=== PATIENT | male | born 1990 | race Caucasian/White ===

== ENCOUNTER 2023-07-25 14:47 | Emergency (ER) | payer OTHER ==
--- NOTE | 2023-07-25 15:14 | ED ---
General Adult HPI - General Source: patient, RN notes reviewed Mode of arrival: ambulatory Limitations: no limitations <Jose A Roman - Last Filed: 07/25/23 15:13> - General Source: RN notes reviewed, old records reviewed Mode of arrival: ambulatory Limitations: no limitations - History of Present Illness -: hour(s) Location: chest Radiation: non-radiation Improves with: none Worsens with: none Associated Symptoms: denies other symptoms <Robin Jones - Last Filed: 07/29/23 18:09> - General Stated complaint: Coughing up black flem Time Seen by Provider: 07/25/23 15:13 - History of Present Illness Initial comments: 33-year-old male presents emergency Department from [facility] for evaluation of cough. he states she is a cough is productive in which she had 2 episodes that the sputum seemed to be black. He doesn't that he is a smoker is currently there for polysubstance abuse. (Jose A Roman) This is a 33-year-old male to the emergency department for evaluation. Patient to episodes of coughing up sputum that did appear to be dark maybe blood-tinged. Patient has no chest pain no current shortness of breath. No prior history of vomiting or coughing up blood. No recent fevers night sweats other complaints (Robin Jones) - Related Data Allergies Allergy/AdvReac Type Severity Reaction Status Date / Time No Known Allergies Allergy Verified 07/25/23 15:30 Review of Systems ROS Other: All systems not noted in ROS Statement are negative. <Jose A Roman - Last Filed: 07/25/23 15:13> ROS Other: All systems not noted in ROS Statement are negative. <Robin Jones - Last Filed: 07/29/23 18:09> ROS Statement: Those systems with pertinent positive or pertinent negative responses have been documented in the HPI. General Exam <Jose A Roman - Last Filed: 07/25/23 15:13> General appearance: alert, in no apparent distress Head exam: Present: atraumatic, normocephalic, normal inspection Eye exam: Present: normal appearance, PERRL, EOMI. Absent: scleral icterus, conjunctival injection, periorbital swelling ENT exam: Present: normal exam, mucous membranes moist Neck exam: Present: normal inspection. Absent: tenderness, meningismus, lymphadenopathy Respiratory exam: Present: normal lung sounds bilaterally. Absent: respiratory distress, wheezes, rales, rhonchi, stridor Cardiovascular Exam: Present: regular rate, normal rhythm, normal heart sounds. Absent: systolic murmur, diastolic murmur, rubs, gallop, clicks GI/Abdominal exam: Present: soft, normal bowel sounds. Absent: distended, tenderness, guarding, rebound, rigid Extremities exam: Present: normal inspection, full ROM, normal capillary refill. Absent: tenderness, pedal edema, joint swelling, calf tenderness Back exam: Present: normal inspection Neurological exam: Present: alert, oriented X3, CN II-XII intact Psychiatric exam: Present: normal affect, normal mood Skin exam: Present: warm, dry, intact, normal color. Absent: rash <Robin Jones - Last Filed: 07/29/23 18:09> - General Exam Comments Initial Comments: Visual Physical Exam Vital signs reviewed General: Well-appearing, nontoxic, no acute distress. Head: Normocephalic, atraumatic Eyes: PERRLA, EOMI ENT: Airway patent Chest: Nonlabored breathing Skin: No visual rash, normal skin tone Neuro: Alert and oriented 3 Musculoskeletal: No gross abnormalities (Jose A Roman) Course <Robin Jones - Last Filed: 07/29/23 18:09> Vital Signs 07/25/23 07/25/23 07/25/23 15:30 17:00 17:18 Temperature 98 F 97.9 F Pulse Rate 101 H 88 Respiratory 16 18 16 Rate Blood Pressure 142/88 134/87 O2 Sat by Pulse 98 100 Oximetry - Reevaluation(s) Reevaluation #1: 07/25/23 Medical record is reviewed (Robin Jones) Reevaluation #2: 07/25/23 Patient symptoms are unchanged (Robin Jones) Reevaluation #3: 07/25/23 Patient for results and questions answered (Robin Jones) Reevaluation #4: Was pt. sent in by a medical professional or institution (, PA, [employer], urgent care, hospital, or [place] [facility] facility...) When possible be specific @ -no Did you speak to anyone other than the patient for history (EMS, parent, family, police, friend...)? What history was obtained from this source @ -no Did you review nursing and triage notes (agree or disagree)? Why? @ -agree Are old charts reviewed (outside hosp., previous admission, EMS record, old EKG, old radiological studies, urgent care reports/EKG's, [place] [facility] records)? Report findings @ -yes Differential Diagnosis (chest pain, altered mental status, abdominal pain women, abdominal pain men, vaginal bleeding, weakness, fever, dyspnea, syncope, headache, dizziness, GI bleed, back pain, seizure, CVA, palpatations, mental health, musculoskeletal)? @ -prior EKG interpreted by me (3pts min.). @ -no X-rays interpreted by me (1pt min.). @ -yes CT interpreted by me (1pt min.). @ -no U/S interpreted by me (1pt. min.). @ -no What testing was considered but not performed or refused? (CT, X-rays, U/S, labs)? Why? @ -none What meds were considered but not given or refused? Why? @ -none Did you discuss the management of the patient with other professionals (professionals i.e. DrLetty, PA, [employer], lab, RT, psych nurse, psych social worker, booking clerk, teacher, code enforcement officer, lining caser)? Give summary @ -no Was smoking cessation discussed for >3mins.? @ -no Was critical care preformed (if so, how long)? @ -no Were there social determinants of health that impacted care today? How? (Homelessness, low income, unemployed, alcoholism, drug addiction, transportation, low edu. Level, literacy, decrease access to med. care, half-way, rehab)? @ -none Was there de-escalation of care discussed even if they declined (Discuss DNR or withdrawal of care, Hospice)? DNR status @ -no What co-morbidities impacted this encounter? (DM, HTN, Smoking, COPD, CAD, Cancer, CVA, ARF, Chemo, Hep., AIDS, mental health diagnosis, sleep apnea, morbid obesity)? @ -none Was patient admitted / discharged? Hospital course, mention meds given and route, prescriptions, significant lab abnormalities, going to OR and other pertinent info. @ - 33 female to the emergency department possibility of coughing up blood but no findings on x-ray here in the ER no recurrent hemoptysis and patient can be discharged home Undiagnosed new problem with uncertain prognosis? @ -no Drug Therapy requiring intensive monitoring for toxicity (Heparin, Nitro, Insulin, Cardizem)? @ -no Were any procedures done? @ -no Diagnosis/symptom? @ -Hemoptysis Acute, or Chronic, or Acute on Chronic? @ -Acute Uncomplicated (without systemic symptoms) or Complicated (systemic symptoms)? @ -Complicated Side effects of treatment? @ -no Exacerbation, Progression, or Severe Exacerbation? @ -exacerbation Poses a threat to life or bodily function? How? (Chest pain, [place], [place], pneumonia, PE, COPD, DKA, ARF, appy, cholecystitis, CVA, Diverticulitis, Homicidal, Suicidal, threat to staff... and all critical care pts) @ -no (Robin Jones) Medical Decision Making <Jose A Roman - Last Filed: 07/25/23 15:13> - Medical Decision Making I performed the quick note portion of this chart signed Jose A Roman PA-C (Jose A Roman) Disposition <Jose A Roman - Last Filed: 07/25/23 15:13> Is patient prescribed a controlled substance at d/c from ED?: No Time of Disposition: 17:30 <Robin Jones - Last Filed: 07/29/23 18:09> Clinical Impression: Hemoptysis Disposition: HOME SELF-CARE Condition: Good Instructions (If sedation given, give patient instructions): Coughing Up Blood (Hemoptysis) (ED) Referrals: None,Stated [Primary Care Provider] - 1-2 days
[2023-07-25 15:32] VITALS: RESP 16
--- NOTE | 2023-07-25 16:02 | XR ---
EXAMINATION TYPE: XR chest 2V DATE OF EXAM: 07/25/2023 3:57 PM COMPARISON: None TECHNIQUE: XR chest 2V Frontal and lateral views of the chest. CLINICAL INDICATION:Male, 33 years old with history of cough; FINDINGS: Lungs/Pleura: There is no evidence of pleural effusion, focal consolidation, or pneumothorax. Pulmonary vascularity: Unremarkable. Heart/mediastinum: Cardiomediastinal silhouette is unremarkable. Musculoskeletal: No acute osseous pathology. IMPRESSION: No acute cardiopulmonary disease/process.
[2023-07-25 17:33] VITALS: BP 134/87; PULSE 88; TEMP 97.9
== END 2023-07-25 17:51 | disposition home or self-care (01) ==
LOC: EC 14:47
DX: R04.2 Hemoptysis (principal)
CPT/HCPCS: 71046; 99283